=== PATIENT | male | born 1990 | race Asian ===

== ENCOUNTER 2017-03-03 18:44 | Emergency (ER) | payer OTHER ==
[~2017-03-03] VITALS: Ht 175.3 cm; Wt 99.9 kg
[2017-03-03 18:51] VITALS: TEMP 36.8; Ht 175.3 cm; Wt 99.9 kg
[2017-03-03] MEDS ORDERED: SODIUM CHLORIDE 0.9% 1000ML 1,000 ML IV STA (19:10)
[2017-03-03] MEDS ORDERED: OPTIRAY 320 IV PRN (19:30)
[2017-03-03 19:43] LABS: ISTAT CREATININE 0.9 mg/dl (0.6-1.3); ISTAT HEMOGLOBIN 16.7 g/dl (14.0-18.0); ISTAT IONIZED CALCIUM 1.16 mmol/l (1.12-1.32)
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
[2017-03-03 20:23] VITALS: BP 122/64; PULSE 61; O2SAT 98
== END 2017-03-03 20:24 | disposition home or self-care (01) ==
LOC: C.EDB 18:47
DX: R10.30 Lower abdominal pain, unspecified (principal); V43.52XA Car driver injured in collision with other type car in traffic accident, initial encounter; Y92.488 Other paved roadways as the place of occurrence of the external cause